=== PATIENT | female | born 1980 | race American Indian/Alaskan Native ===

== ENCOUNTER 2021-06-28 10:52 | Emergency (ER) | payer MEDICAID ==
[2021-06-28] MEDS ORDERED: FLUORESCEIN 1 MG STRIP OP ONE (12:51)
--- NOTE | 2021-06-28 12:52 | Emergency Department Report ---
ED Eye Problem HPI - General Chief complaint: Eye Problems Stated complaint: POSS EYE INFECTION Time Seen by Provider: 06/28/21 12:39 Source: patient Mode of arrival: Ambulatory Limitations: No Limitations - History of Present Illness Initial comments: 40 year old female presents to ED with complaints of left eye pain and redness. Onset was about 3 days ago. She reports pain, photophobia, increased tearing and mild mucopurulent drainage. She reports also some matting and crusting. She does admit that she wears contacts and she does sleep with her contacts. She states she last wore contacts about 3 days ago when her symptoms started. She denies any injury, grinding or welding. She denies any additional symptoms. MD chief complaint: eye pain, eye redness, vision change -: days(s) (3) - Related Data Previous Rx's Medication Instructions Recorded Last Taken Type Acetaminophen/Codeine [Tylenol 1 tab PO Q6H PRN #12 tab 06/28/21 Unknown Rx /Codeine # 3 tab] Ciprofloxacin HCl [Ciloxan] 2 drop OP DAILY 15 Days #1 bottle 06/28/21 Unknown Rx Allergies Allergy/AdvReac Type Severity Reaction Status Date / Time No Known Allergies Allergy Verified 06/28/21 11:46 ED Review of Systems ROS: Stated complaint: POSS EYE INFECTION Other details as noted in HPI Comment: All other systems reviewed and negative Eyes: eye pain, eye discharge, vision change ENT: denies: ear pain, throat pain Respiratory: denies: cough, shortness of breath, wheezing Cardiovascular: denies: chest pain, palpitations Gastrointestinal: denies: abdominal pain, nausea, diarrhea, constipation, hematemesis, melena, hematochezia Genitourinary: denies: urgency, dysuria, frequency, hematuria, discharge, abnormal menses, dyspareunia Skin: denies: rash, lesions, change in color, change in hair/nails, pruritus Neurological: denies: headache, weakness, numbness, paresthesias, confusion, vertigo Psychiatric: denies: anxiety, depression, auditory hallucinations, visual hallucinations, homicidal thoughts, suicidal thoughts Hematological/Lymphatic: denies: easy bleeding, easy bruising ED Past Medical Hx - Past Medical History Previous Medical History?: Yes Hx Hypertension: Yes - Surgical History Past Surgical History?: No - Medications Home Medications: Home Medications Medication Instructions Recorded Confirmed Last Taken Type Acetaminophen/Codeine [Tylenol 1 tab PO Q6H PRN #12 tab 06/28/21 Unknown Rx /Codeine # 3 tab] Ciprofloxacin HCl [Ciloxan] 2 drop OP DAILY 15 Days #1 bottle 06/28/21 Unknown Rx ED Physical Exam - General Limitations: No Limitations General appearance: alert, in no apparent distress - Head Head exam: Present: atraumatic, normocephalic, normal inspection - Eye Eye exam: Present: PERRL, EOMI, conjunctival injection, other (corneal abrasion vs ulceration noted center of left cornea on left eye which can be seen without stain ). Absent: periorbital swelling, periorbital tenderness Pupils: Present: normal accommodation, other (Johnson lamp exam - left eye - corneal ulceration center of cornea; no other apparent abnormality. ) - Expanded Eye Exam Expanded Pupils: Regular, Round: Bilateral, Reactive: Bilateral Sclera/Conjunctival: Injection: Left Visual acuity (R) = 20/: 20 Visual acuity (L) = 20/: 70 With correction: No - Neck Neck exam: Present: normal inspection, full ROM. Absent: meningismus - Respiratory Respiratory exam: Absent: respiratory distress - Cardiovascular Cardiovascular Exam: Present: regular rate - Neurological Exam Neurological exam: Present: alert, oriented X3, CN II-XII intact, normal gait - Psychiatric Psychiatric exam: Present: normal affect, normal mood - Skin Skin exam: Present: intact ED Course Vital Signs 06/28/21 11:46 Temperature 98.5 F Pulse Rate 90 Respiratory 16 Rate Blood Pressure 181/91 [Left] O2 Sat by Pulse 98 Oximetry Critical care attestation.: If time is entered above; I have spent that time in minutes in the direct care of this critically ill patient, excluding procedure time. ED Disposition Clinical Impression: Corneal ulcer of left eye Disposition: HOME / SELF CARE / HOMELESS Is pt being admited?: No Does the pt Need Aspirin: No Condition: Stable Instructions: Corneal Ulcer, How to Use Eye Drops and Eye Ointments Additional Instructions: It is important that you start using the ciloxan eye drops today and as prescribed. Take the tylenol 3 as prescribed to help with pain. Follow up with ophthamologist in 3-4 days for re-eval. Return to ED if worse. Prescriptions: Ciprofloxacin HCl [Ciloxan] 2 drop OP DAILY 15 Days #1 bottle Acetaminophen/Codeine [Tylenol /Codeine # 3 tab] 1 tab PO Q6H PRN #12 tab PRN Reason: Pain , Severe (7-10) Referrals: [facility] [Provider Group] - 3-5 Days TONE DOOLEY DO [Staff Physician] - 3-5 Days Forms: Work/School Release Form(ED) Time of Disposition: 13:30
[2021-06-28 14:40] VITALS: BP 178/92
== END 2021-06-28 14:40 | disposition home or self-care (01) ==
LOC: ED 10:52
DX: H16.002 Unspecified corneal ulcer, left eye (principal); I10 Essential (primary) hypertension; Z79.899 Other long term (current) drug therapy
CPT/HCPCS: 99283